=== PATIENT | male | born 1985 | race African-American/Black ===

== ENCOUNTER 2017-06-22 07:43 | Emergency (ER) | payer BC ==
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
[2017-06-22 09:17] VITALS: BP 121/71
--- NOTE | 2017-06-24 05:51 | CR ---
EXAM DATE: 06/22/17 PATIENT'S AGE: 32 Patient: CASSY FOX Facility: [place], [place] Site . Site : 1985 Study: XRay Knee Right [id number]/3/2018 8:16:32 AM Ordering Physician: Ze Lobo Final Report: INDICATION: Pain. TECHNIQUE: Three views of the right knee. FINDINGS: No fracture, dislocation, erosion, or effusion. IMPRESSION: Normal three view right knee. Dictated by Jerman Lambert MD @ Jun 22 2017 8:45AM (Electronic Signature) Report Signed by Proxy. MELLISA
== END 2017-06-22 09:07 | disposition home or self-care (01) ==
LOC: MW.ED 07:43
DX: S89.91XA Unspecified injury of right lower leg, initial encounter (principal); F17.200 Nicotine dependence, unspecified, uncomplicated; W27.0XXA Contact with workbench tool, initial encounter
CPT/HCPCS: 73562-26-RT; 73562-RT; 99283